=== PATIENT | male | born 1980 | race Caucasian/White ===

== ENCOUNTER 2020-04-05 15:17 | Emergency (ER) | payer SELFPAY ==
[~2020-04-05] VITALS: Ht 175.2 cm; Wt 66.6 kg
[2020-04-05 15:34] VITALS: BP 119/79
[2020-04-05] MEDS ORDERED: methylPREDNISolone 80 MG/ML (DEPO MEDROL) VIAL IM STA (16:08)
[2020-04-05] MEDS ORDERED: KETOROLAC 60 MG/2 ML VIAL IM STA (16:08)
[2020-04-05] MEDS ORDERED: BACL10TA PO (16:15)
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
== END 2020-04-05 16:31 | disposition home or self-care (01) ==
LOC: EDUNIT# 15:17 → ER FS 15:19
DX: S46.812A Strain of other muscles, fascia and tendons at shoulder and upper arm level, left arm, initial encounter (principal); S46.811A Strain of other muscles, fascia and tendons at shoulder and upper arm level, right arm, initial encounter; M62.830 Muscle spasm of back; M54.12 Radiculopathy, cervical region; M47.9 Spondylosis, unspecified; F41.9 Anxiety disorder, unspecified; F17.210 Nicotine dependence, cigarettes, uncomplicated; Z88.6 Allergy status to analgesic agent; Z88.8 Allergy status to other drugs, medicaments and biological substances; V86.99XA Unspecified occupant of other special all-terrain or other off-road motor vehicle injured in nontraffic accident, initial encounter
CPT/HCPCS: 99284

== ENCOUNTER 2022-10-13 09:01 | Emergency (ER) | payer SELFPAY ==
[~2022-10-13 09:01] MED LIST: BACL10TA PO
[2022-10-13 09:43] LABS: AMPHETAMINE SCREEN, URINE NEGATIVE (NEGATIVE); BARBITURATE SCREEN URINE NEGATIVE (NEGATIVE); BENZODIAZEPINES SCREEN URINE NEGATIVE (NEGATIVE); CANNABINOID SCREEN, URINE POSITIVE (NEGATIVE); COCAINE SCREEN URINE NEGATIVE (NEGATIVE); METHADONE STAT NEGATIVE (NEGATIVE); OPIATE SCREEN URINE NEGATIVE (NEGATIVE); OXYCODONE STAT NEGATIVE (NEGATIVE); PROPOXYPHENE STAT NEGATIVE (NEGATIVE); TRICYCLIC ANTIDEPRESSANTS SCRE NEGATIVE (NEGATIVE)
[2022-10-13 09:53] VITALS: BP 136/78
--- NOTE | 2022-10-13 09:56 | ED General ---
General Chief Complaint: General Problems/Pain Stated Complaint: ANXIETY Nursing Triage Note: PT REPORTS HE HAS HAD INCREASED ANXIETY FOR 3 DAYS. HE TAKES HYDROXYZINE FOR ANXIETY BUT HAS NOT TAKEN IT TODAY. PT ALSO WANTS A DRUG SCREEN TO MAKE SURE HE DOES NOT HAVE ANY DRUGS IN HIS SYSTEM. Source of Information: Patient, Family (Mother) Exam Limitations: No Limitations History of Present Illness Date Seen by Provider: Oct 13, 2022 Time Seen by Provider: 09:14 Initial Comments 42-year-old male patient with history of anxiety, depression, PTSD and chronic back pain presented to ER with his mother with complaining of anxiety. Patient states that he has had anxiety all of his life that is getting worse for the last 3 days and thinks people are watching him and hearing voices without new changes for the last 3 days. Patient denies suicidal homicidal ideation. Patient takes hydroxyzine for anxiety but take his medication today. Patient as massiel for a urine drug screen to make sure he does not have drug in his urine. He admitted to use marijuana. Patient has a mental health provider but did not follow-up with his provider recently and did not make an appointment. Patient denies chest pain, shortness of breath, nausea and vomiting, headache, diarrhea and constipation, urinary symptoms. Allergies and Home Medications Allergies Coded Allergies: caffeine (Verified Allergy, Unknown, 04/05/20) ibuprofen (Verified Allergy, Unknown, 04/05/20) naproxen (Verified Allergy, Unknown, 04/05/20) Patient Home Medication List Home Medication List Reviewed: Yes Baclofen (Baclofen) 10 Mg Tablet, 10 MG PO TID PRN for MUSCLE SPASMS Prescribed by: DEV RODRIGUEZ on 04/05/20 0703 Review of Systems Review of Systems Constitutional: no symptoms reported EENTM: no symptoms reported Respiratory: no symptoms reported Cardiovascular: no symptoms reported Gastrointestinal: no symptoms reported Genitourinary: no symptoms reported Musculoskeletal: back pain Skin: no symptoms reported Psychiatric/Neurological: See HPI Hematologic/Lymphatic: No Symptoms Reported Immunological/Allergic: no symptoms reported All Other Systems Reviewed Negative Unless Noted: Yes Past Lrvpkui-Gthstw-Larqhv Hx Patient Social History Tobacco Use?: Yes Tobacco type used: Cigarettes Smoking Status: Current Everyday Smoker Smokeless Tobacco Frequency: Current Everyday User Use of E-Cig and/or Vaping dev: Yes E-Cig or Vaping type used: Nicotine Substance use?: Yes Substance type: Marijuana Alcohol Use?: No Pt feels they are or have been: No Seasonal Allergies Seasonal Allergies: No Past Medical History Surgeries: Yes (Neck surgery) Orthopedic Respiratory: No Cardiac: No Neurological: No Neuropathy Genitourinary: No Gastrointestinal: No Musculoskeletal: Yes Chronic Back Pain Endocrine: No HEENT: No Cancer: No Psychosocial: Yes Anxiety, PTSD, Depression Physical Exam Vital Signs Vital Signs - First Documented 10/13/22 09:17 Temp 36.8 Pulse 80 Resp 16 B/P (MAP) 136/78 (97) Pulse Ox 99 O2 Delivery Room Air Capillary Refill : Less Than 3 Seconds Height, Weight, BMI Height: '" Weight: lbs. oz. kg; 21.00 BMI Method: General Appearance: Anxious HEENT: PERRL/EOMI Neck: Full Range of Motion, Normal Inspection Respiratory: Chest Non Tender, Lungs Clear, Normal Breath Sounds, No Accessory Muscle Use, No Respiratory Distress Cardiovascular: Regular Rate, Rhythm, No Edema Gastrointestinal: Normal Bowel Sounds, No Organomegaly Back: Normal Inspection Extremity: Normal Inspection Neurologic/Psychiatric: Alert, Oriented x3, No Motor/Sensory Deficits, Normal Mood/Affect Skin: Normal Color Progress/Results/Core Measures Suspected Sepsis SIRS Temperature: Pulse: 80 Respiratory Rate: 16 Blood Pressure 136 /78 Mean: 97 Results/Orders Lab Results Laboratory Tests Test 10/13/22 09:30 Range/Units Urine Opiates Screen NEGATIVE NEGATIVE Urine Oxycodone Screen NEGATIVE NEGATIVE Urine Methadone Screen NEGATIVE NEGATIVE Urine Propoxyphene Screen NEGATIVE NEGATIVE Urine Barbiturates Screen NEGATIVE NEGATIVE Ur Tricyclic Antidepressants Screen NEGATIVE NEGATIVE Urine Phencyclidine Screen NEGATIVE NEGATIVE Urine Amphetamines Screen NEGATIVE NEGATIVE Urine Methamphetamines Screen NEGATIVE NEGATIVE Urine Benzodiazepines Screen NEGATIVE NEGATIVE Urine Cocaine Screen NEGATIVE NEGATIVE Urine Cannabinoids Screen POSITIVE H NEGATIVE My Orders Orders - JENNY AGUILAR MD Drug Screen Stat (Urine) (10/13/22 09:20) Vital Signs/I&O 10/13/22 10/13/22 09:17 09:53 Temp 36.8 36.8 Pulse 80 80 Resp 16 16 B/P (MAP) 136/78 (97) 136/78 Pulse Ox 99 99 O2 Delivery Room Air Room Air Capillary Refill : Less Than 3 Seconds Blood Pressure Mean: 97 Progress Note : Progress Note Patient with history of chronic anxiety and audible hallucination and complaining of increasing anxiety for the last 3 days without suicidal and homicidal ideation. Patient requested urine drug screen test that was positive for marijuana as he admitted to use marijuana. An appointment with [facility] was made for 10 AM today and patient advised to follow-up with appointment. Departure Impression Primary Impression: Anxiety Additional Impression: Hallucination Disposition: 01 HOME, SELF-CARE Condition: Stable Departure-Patient Inst. Decision time for Depature: 09:55 Referrals: WAQAS DOVE APRN (PCP) Primary Care Physician [facility] (Family) Primary Care Physician Patient Instructions: Anxiety, Adult ED Add. Discharge Instructions: Follow-up with your psychiatric appointment at 10 AM today Return to ER as needed All discharge instructions reviewed with patient and/or family. Voiced understanding. JENNY AGUILAR MD Oct 13, 2022 09:56
== END 2022-10-13 10:01 | disposition home or self-care (01) ==
LOC: EDUNIT# 09:01 → ER FS 09:02
DX: F41.9 Anxiety disorder, unspecified (principal); R44.0 Auditory hallucinations; F17.210 Nicotine dependence, cigarettes, uncomplicated; F17.290 Nicotine dependence, other tobacco product, uncomplicated; Z79.899 Other long term (current) drug therapy
CPT/HCPCS: 80306; 99281

== ENCOUNTER 2022-10-14 11:24 | Emergency (ER) | payer SELFPAY ==
[~2022-10-14] VITALS: Ht 175.3 cm; Wt 61.2 kg
--- NOTE | 2022-10-14 11:42 | ED Psychosocial ---
General Chief Complaint: General Problems/Pain Stated Complaint: HOMICIDAL IDEATION Source: patient, EMS (DEV RODRIGUEZ MD) History of Present Illness Date Seen by Provider: Oct 14, 2022 Time Seen by Provider: 11:24 Initial Comments 42 yo male presenting by EMS from home with complaint of hearing voices, paranoid that he is being recorded and watched, worried that he is going to hurt people and having thoughts of hurting people. He reports that he feels that he needs to be admitted to a psychiatric hospital for mental health treatment. He is worried that his thoughts are not his own. He states he follows with "Gwendolyn" at [facility] and sees JM Dove for primary care. He reports taking Duloxetine 60 mg twice a day to treat for hearing voices and hallucinating. He denies missing doses of medicines. He feels that the medicine is not working and thinks he needs a higher dose. He denies being suicidal. He is having some homicidal thoughts and thoughts of harming other people. Timing/Duration: getting worse Severity: moderate Associated Symptoms: anxiety, impaired concentration (DEV RODRIGUEZ MD) Initial Comments Agree with H & P (YAKELIN ARAUJO MD) Allergies and Home Medications Allergies Coded Allergies: caffeine (Verified Allergy, Unknown, 04/05/20) ibuprofen (Verified Allergy, Unknown, 04/05/20) naproxen (Verified Allergy, Unknown, 04/05/20) Patient Home Medication List Home Medication List Reviewed: Yes (DEV RODRIGUEZ MD) Home Medication List Reviewed: Yes (YAKELIN ARAUJO MD) Discontinued Medications Baclofen (Baclofen) 10 Mg Tablet, 10 MG PO TID PRN for MUSCLE SPASMS Prescribed by: DEV RODRIGUEZ on 04/05/20 1615 Last Action: Discontinued Review of Systems Constitutional: No chills, No fever EENTM: no symptoms reported Respiratory: cough (occasionally coughing up some clear or white phlegm) Cardiovascular: no symptoms reported Gastrointestinal: no symptoms reported Genitourinary: no symptoms reported Musculoskeletal: no symptoms reported Skin: no symptoms reported Psychiatric/Neurological: See HPI (DEV RODRIGUEZ MD) Past Cstjhwf-Lhfqfw-Mglphd Hx Patient Social History Tobacco Use?: Yes Tobacco type used: Cigarettes Smoking Status: Current Everyday Smoker Substance use?: Yes Substance type: Marijuana Alcohol Use?: No (DEV RODRIGUEZ MD) Seasonal Allergies Seasonal Allergies: No (DEV RODRIGUEZ MD) Past Medical History Surgery/Hospitalization HX: Anxiety, Depression, PTSD, Chronic back pain, Paranoia Surgeries: Yes (Neck surgery) Orthopedic Respiratory: No Cardiac: No Neurological: No Neuropathy Genitourinary: No Gastrointestinal: No Musculoskeletal: Yes Chronic Back Pain Endocrine: No HEENT: No Cancer: No Psychosocial: Yes Anxiety, PTSD, Depression (DEV RODRIGUEZ MD) Physical Exam Vital Signs - First Documented 10/14/22 11:37 Temp 36.7 Pulse 84 Resp 19 B/P (MAP) 151/82 (105) O2 Delivery Room Air (YAKELIN ARAUJO MD) Capillary Refill : (DEV RODRIGUEZ MD) Height, Weight, BMI Height: '" Weight: lbs. oz. kg; 21.00 BMI Method: General Appearance: no apparent distress, thin HEENT: PERRL/EOMI, pharynx normal Neck: non-tender, full range of motion, supple, normal inspection Respiratory: chest non-tender, lungs clear, normal breath sounds, no respirator y distress, no accessory muscle use Cardiovascular: normal peripheral pulses, regular rate, rhythm Gastrointestinal: normal bowel sounds, non tender, soft, no pulsatile mass Extremities: normal range of motion, non-tender, normal capillary refill Neurologic/Psychiatric: director of search engine optimization II-XII nml as tested, alert, oriented x 3, other (anxious and seems to be hearing things or listening to something at times) Appearance/Memory: appropriate appearance Behavior/Eye Contact: cooperative, normal speech Thoughts/Hallucinations: auditory hallucinations, paranoid (states he feels that people are watching him and talking to him, telling him to hurt people. Feels that he is being recorded), phobic Skin: normal color, warm/dry (DEV RODRIGUEZ MD) General Appearance: WD/WN, no apparent distress HEENT: PERRL/EOMI Neck: full range of motion Respiratory: lungs clear Cardiovascular: regular rate, rhythm Neurologic/Psychiatric: alert, oriented x 3 Appearance/Memory: appropriate appearance, appropriate insight, neat Behavior/Eye Contact: cooperative, good eye contact, normal speech (YAKELIN ARAUJO MD) BARS Assessment: 4-Calm/No Agitation (DEV RODRIGUEZ MD) Progress/Results/Core Measures Results/Orders Lab Results Laboratory Tests Test 10/14/22 11:40 10/14/22 11:50 10/14/22 16:51 Range/Units White Blood Count 6.4 4.3-11.0 10^3/uL Red Blood Count 4.51 4.30-5.52 10^6/uL Hemoglobin 13.5 13.3-17.7 g/dL Hematocrit 40 40-54 % Mean Corpuscular Volume 88 80-99 fL Mean Corpuscular Hemoglobin 30 25-34 pg Mean Corpuscular Hemoglobin Concent 34 32-36 g/dL Red Cell Distribution Width 12.3 10.0-14.5 % Platelet Count 168 130-400 10^3/uL Mean Platelet Volume 10.0 9.0-12.2 fL Immature Granulocyte % (Auto) 0 % Neutrophils (%) (Auto) 71 42-75 % Lymphocytes (%) (Auto) 21 12-44 % Monocytes (%) (Auto) 7 0-12 % Eosinophils (%) (Auto) 1 0-10 % Basophils (%) (Auto) 1 0-10 % Neutrophils # (Auto) 4.5 1.8-7.8 10^3/uL Lymphocytes # (Auto) 1.3 1.0-4.0 10^3/uL Monocytes # (Auto) 0.5 0.0-1.0 10^3/uL Eosinophils # (Auto) 0.0 0.0-0.3 10^3/uL Basophils # (Auto) 0.0 0.0-0.1 10^3/uL Immature Granulocyte # (Auto) 0.0 0.0-0.1 10^3/uL Sodium Level 140 135-145 MMOL/L Potassium Level 4.3 3.6-5.0 MMOL/L Chloride Level 103 98-107 MMOL/L Carbon Dioxide Level 27 21-32 MMOL/L Anion Gap 10 5-14 MMOL/L Blood Urea Nitrogen 15 7-18 MG/DL Creatinine 1.39 H 0.60-1.30 MG/DL Estimat Glomerular Filtration Rate 66 BUN/Creatinine Ratio 11 Glucose Level 99 70-105 MG/DL Calcium Level 9.4 8.5-10.1 MG/DL Corrected Calcium 9.2 8.5-10.1 MG/DL Total Bilirubin 0.6 0.1-1.0 MG/DL Aspartate Amino Transf (AST/SGOT) 13 5-34 U/L Alanine Aminotransferase (ALT/SGPT) 8 0-55 U/L Alkaline Phosphatase 52 40-136 U/L Total Protein 6.4 6.4-8.2 GM/DL Albumin 4.3 3.2-4.5 GM/DL Salicylates Level < 0.3 L 5.0-20.0 MG/DL Acetaminophen Level < 10 L 10-30 UG/ML Serum Alcohol < 10 <10 MG/DL Urine Color YELLOW Urine Clarity CLEAR Urine pH 7.0 5-9 Urine Specific [place] 1.010 L 1.016-1.022 Urine Protein NEGATIVE NEGATIVE Urine Glucose (UA) NEGATIVE NEGATIVE Urine Ketones 1+ H NEGATIVE Urine Nitrite NEGATIVE NEGATIVE Urine Bilirubin NEGATIVE NEGATIVE Urine Urobilinogen 2.0 < = 1.0 MG/DL Urine Leukocyte Esterase NEGATIVE NEGATIVE Urine RBC (Auto) NEGATIVE NEGATIVE Urine RBC 0-2 /HPF Urine WBC RARE /HPF Urine Squamous Epithelial Cells 2-5 /HPF Urine Crystals NONE /LPF Urine Bacteria TRACE /HPF Urine Casts PRESENT /LPF Urine Hyaline Casts 0-2 H /LPF Urine Mucus MODERATE H /LPF Urine Culture Indicated NO Urine Opiates Screen NEGATIVE NEGATIVE Urine Oxycodone Screen NEGATIVE NEGATIVE Urine Methadone Screen NEGATIVE NEGATIVE Urine Propoxyphene Screen NEGATIVE NEGATIVE Urine Barbiturates Screen NEGATIVE NEGATIVE Ur Tricyclic Antidepressants Screen NEGATIVE NEGATIVE Urine Phencyclidine Screen NEGATIVE NEGATIVE Urine Amphetamines Screen NEGATIVE NEGATIVE Urine Methamphetamines Screen NEGATIVE NEGATIVE Urine Benzodiazepines Screen NEGATIVE NEGATIVE Urine Cocaine Screen NEGATIVE NEGATIVE Urine Cannabinoids Screen POSITIVE H NEGATIVE SARS-CoV-2 RNA (RT-PCR) Not Detected Not Detecte (YAKELIN ARAUJO MD) Progress Progress Note #1: Progress Note Potential diagnosis of paranoid behavior, auditory hallucinations, acute psychosis, substance abuse, homicidal ideation, anxiety. Patient is currently calm and cooperative here in the ED. He repeatedly voices that he feels like he needs to be admitted to psychiatric hospital. He repeats himself saying that he is not sure if his thoughts are his own or if he is going to hurt somebody or not. Patient was placed in a room without any extra supplies or materials that he could use to hurt himself or others. Draw blood and send labs for complete blood count, comprehensive metabolic profile, alcohol, salicylate, acetaminophen levels, urinalysis, urine drug screen. obtain electrocardiogram to check for QT prolongation or arrhythmia. Advised patient that since we do not have mental health services specifically here in the ED he will have to speak to mental health provider over an internet web conference or telehealth visit to determine plan for his care and how to keep himself and others safe. From review of his electronic medical record he was seen briefly in the emergency department yesterday, October 13, for anxiety and hearing voices. He did have paranoia at that time with thoughts of people watching and recording him. He had a urine drug screen that showed only marijuana present. He was able to have an emergent appointment at [facility] at 10 AM and was discharged from the emergency department to go there. From review of the external medication history on the patient he was prescribed a 3-day course of olanzapine 2.5 mg p.o. twice daily. He has a history of anxiety, depression, PTSD, chronic back pain. He also is prescribed trazodone 150 mg at bedtime to help him sleep, hydroxyzine 50 mg up to 4 times a day day for anxiety, gabapentin 800 mg 4 times a day for chronic back pain and neuropathy, duloxetine 60 mg twice a day. 1155 his mother arrived by private vehicle and is sitting in the room with him. Progress Note #2: Time: 12:06 Progress Note Limited personal interpretation and review of his electrocardiogram shows a normal sinus rhythm without ischemic changes or QT prolongation. There is no prior tracings available for comparison. His complete blood count shows a normal white blood cell count of 6.4. His hemoglobin was in the normal range at 13.5. His alcohol level was less than 10. His urinalysis had specific gravity 1.010. He had 1+ ketones. He had no leukocyte esterase or nitrites in his urine. 1209 comprehensive metabolic profile did not show any acute electrolyte abnormalities, hepatic failure, glucose abnormalities. His creatinine was slightly elevated to 1.39. There is no prior test for comparison. His urine drug screen was still only positive for marijuana. His acetaminophen level was less than 10 and aspirin level less than 0.3. He is medically clear and stable for mental health evaluation. We will reach out to [facility] about a screening. Progress Note #3: Time: 16:07 Progress Note After speaking with the [facility] screener on Telemedicine visit they deemed he met admission criteria and will look for placement. Will add on Covid swab to assist with placement. Patient also requested I look in his ears as he wanted to make sure there were no listening devices or microphones in his ears. On my physical exam he has clear TMs bilaterally and there is nothing in the canal on either side. This reassured the patient. We will also order a dose of olanzapine 5 mg p.o. x1 to help with his psychosis and auditory hallucinations.. I did not have the 2.5 mg strength that he was prescribed yesterday. Constance arently he was never able to pick that up as the pharmacy had told him that they would not have until Sunday. 644October 15, 2022, Patient has remained calm and cooperative overnight and rested in his room. Continue to await placement by [facility] for inpatient psychiatric care. Will continue with the Olanzapine 5 mg po BID for psychosis and hallucinations along with his home meds while waiting on placement. Pass care to Dr. Araujo. (DEV RODRIGUEZ MD) Progress Note : Progress Note Pt signed out to me by night physician. Patient excepted to [facility] for psych treatment for unspecified depressive disorder. (YAKELIN ARAUJO MD) Initial ECG Impression Date: Oct 14, 2022 Initial ECG Impression Time: 11:40 Initial ECG Rate: 62 Initial ECG Rhythm: Normal Sinus Initial ECG Comparisson: No Previous ECG Available Comment On my personal interpretation and review his electrocardiogram shows a sinus rhythm with a heart rate of 62 bpm. He has no acute ST elevation. MA interval 180 ms. QT interval 416 ms with a QTc interval 422 ms. There is no prior tracing available for comparison. (DEV RODRIGUEZ MD) Departure Impression Primary Impression: Acute psychosis Additional Impressions: Anxiety Verbal auditory hallucinations Acute depression Disposition: 65 XFER TO PSYCH HOSP/UNIT Condition: Stable Transfer Transfer Reason: Exceeds level of care Time Spoke to Accepting Phy: 09:45 Transfer Progress Notes ACCEPTING physician: Dr. Huynh Transfer Facility: [facility] Method of Transfer: (YAKELIN ARAUJO MD) Departure-Patient Inst. Referrals: WAQAS DOVE APRN (PCP) Primary Care Physician [facility] (Family) Primary Care Physician DEV RODRIGUEZ MD Oct 14, 2022 11:42 YAEKLIN ARAUJO MD Oct 15, 2022 10:02
[2022-10-14 11:46] LABS: BASOPHILS % (AUTO) 1 % (0-10); EOSINOPHILS % (AUTO) 1 % (0-10); HEMATOCRIT 40 % (40-54); HEMOGLOBIN 13.5 g/dL (13.3-17.7); LYMPHOCYTES # (AUTO) 1.3 10^3/uL (1.0-4.0); LYMPHOCYTES % (AUTO) 21 % (12-44); MEAN CORPUSCULAR HEMOGLOBIN 30 pg (25-34); MEAN CORPUSCULAR HGB CONC 34 g/dL (32-36); MEAN CORPUSCULAR VOLUME 88 fL (80-99); MONOCYTES # (AUTO) 0.5 10^3/uL (0.0-1.0); MONOCYTES % (AUTO) 7 % (0-12); NEUTROPHILS # (AUTO) 4.5 10^3/uL (1.8-7.8); NEUTROPHILS % (AUTO) 71 % (42-75); PLATELET COUNT 168 10^3/uL (130-400); WHITE BLOOD COUNT 6.4 10^3/uL (4.3-11.0)
[2022-10-14 11:56] LABS: BILIRUBIN,URINE NEGATIVE (NEGATIVE); CLARITY,URINE CLEAR; COLOR,URINE YELLOW; GLUCOSE, URINE (UA) NEGATIVE (NEGATIVE); KETONES,URINE 1+ (NEGATIVE); LEUKOCYTE ESTERASE ,URINE NEGATIVE (NEGATIVE); NITRITE,URINE NEGATIVE (NEGATIVE); PROTEIN,URINE NEGATIVE (NEGATIVE)
[2022-10-14 11:59] LABS: RBC,URINE 0-2 /HPF
[2022-10-14 12:00] LABS: BACTERIA,URINE TRACE /HPF; HYALINE CASTS, URINE 0-2 /LPF; WBC,URINE RARE /HPF
[2022-10-14 12:06] LABS: AMPHETAMINE SCREEN, URINE NEGATIVE (NEGATIVE); BENZODIAZEPINES SCREEN URINE NEGATIVE (NEGATIVE); CANNABINOID SCREEN, URINE POSITIVE (NEGATIVE); COCAINE SCREEN URINE NEGATIVE (NEGATIVE)
[2022-10-14 12:07] LABS: BARBITURATE SCREEN URINE NEGATIVE (NEGATIVE); METHADONE STAT NEGATIVE (NEGATIVE); OPIATE SCREEN URINE NEGATIVE (NEGATIVE); OXYCODONE STAT NEGATIVE (NEGATIVE); PROPOXYPHENE STAT NEGATIVE (NEGATIVE); TRICYCLIC ANTIDEPRESSANTS SCRE NEGATIVE (NEGATIVE)
[2022-10-14 12:07] LABS: ACETAMINOPHEN < 10 UG/ML (10-30); ALANINE AMINOTRANSFERASE 8 U/L (0-55); ALBUMIN 4.3 GM/DL (3.2-4.5); ALKALINE PHOSPHATASE 52 U/L (40-136); BILIRUBIN,TOTAL 0.6 MG/DL (0.1-1.0); BUN/CREATININE RATIO 11; CALCIUM 9.4 MG/DL (8.5-10.1); CARBON DIOXIDE 27 MMOL/L (21-32); CHLORIDE 103 MMOL/L (98-107); CREATININE SERUM 1.39 MG/DL (0.60-1.30); GFR ESTIMATED 66; GLUCOSE 99 MG/DL (70-105); POTASSIUM 4.3 MMOL/L (3.6-5.0); SALICYLATE < 0.3 MG/DL (5.0-20.0); SODIUM 140 MMOL/L (135-145); TOTAL PROTEIN 6.4 GM/DL (6.4-8.2)
[2022-10-14] MEDS ORDERED: OLANZapine 5 MG ODT (ZyPREXA ZYDIS) PO STA (16:27)
[2022-10-14] MEDS ORDERED: traZODone 150 MG (DESYREL) TABLET PO SCH (21:00)
[2022-10-15] MEDS ORDERED: OLANZapine 5 MG ODT (ZyPREXA ZYDIS) PO SCH (09:00)
[2022-10-15 14:05] VITALS: BP 124/68
== END 2022-10-15 14:05 ==
LOC: EDUNIT# 11:24 → ER FS 11:25
DX: F23 Brief psychotic disorder (principal); F41.9 Anxiety disorder, unspecified; F32.A Depression, unspecified; F22 Delusional disorders; F17.210 Nicotine dependence, cigarettes, uncomplicated; Z20.822 Contact with and (suspected) exposure to COVID-19
CPT/HCPCS: 36415; 80053; 80306; 81000; 85025; 87636; 99283; G0480 ×3; 80320; 80329; 93005